=== PATIENT | male | born 1990 | race Caucasian/White ===

== ENCOUNTER 2021-07-24 20:03 | Emergency (ER) | payer OTHER ==
[2021-07-24 20:18] VITALS: TEMP 97.3; BMI 20.7
[2021-07-24] MEDS ORDERED: SODIUM CHLORIDE 1,000 ML IV STA (20:28)
[2021-07-24] MEDS ORDERED: ADENOSINE 6 MG/2 ML VIAL IVPUSH ONE ×4 (20:39→22:23)
[2021-07-24 20:44] LABS: BASO % 0.5 % (0-2.0); EOS % 1.2 % (0-4.5); HEMATOCRIT 43.1 % (35.4-49); HEMOGLOBIN 14.7 GM/dL (11.7-16.9); LYMPH % 11.4 % (8-40); MCH 31.5 pg (25.7-33.7); MCHC 34.1 g/dl (32.0-35.9); MEAN CELL VOLUME 92.3 fl (80-96); MEAN PLT VOLUME 8.3 fl (7.5-11.1); MONO % 5.1 % (3.8-10.2); NEUT % 81.8 % (42.8-82.8); PLATELET COUNT 224 10^3/uL (134-434); RBC 4.67 M/mm3 (4.00-5.60); RDW 13.9 % (11.9-15.9); WHITE BLOOD COUNT 11.1 K/mm3 (4.0-10.0)
[2021-07-24 20:51] LABS: INR 1.21 (0.83-1.09); PROTHROMBIN TIME (PATIENT) 13.6 SEC (9.7-13.0)
[2021-07-24 20:53] LABS: ACTIVATED PTT 34.4 SECONDS (25.2-36.5)
[2021-07-24 21:04] LABS: CHLORIDE 104 mmol/L (98-107); SODIUM 132 mmol/L (136-145)
[2021-07-24 21:06] LABS: CALCIUM 8.8 mg/dL (8.5-10.1)
[2021-07-24 21:07] LABS: ALBUMIN 3.9 g/dl (3.4-5.0); BLOOD UREA NITROGEN 17.3 mg/dL (7-18); CO2 28 mmol/L (21-32); GLUCOSE,RANDOM 174 mg/dL (74-106); MAGNESIUM 2.3 mg/dL (1.8-2.4)
[2021-07-24 21:10] LABS: CREATININE 1.4 mg/dL (0.55-1.3); SGOT/AST 118 U/L (15-37)
[2021-07-24 21:12] LABS: BILIRUBIN,TOTAL 0.6 mg/dL (0.2-1)
[2021-07-24 21:13] LABS: ALK PHOS 52 U/L (45-117)
[2021-07-24 22:06] LABS: ANION GAP 1 MMOL/L (8-16); SGPT/ALT 55 U/L (13-61)
[2021-07-24 22:42] VITALS: BP 130/55; PULSE 187
== END 2021-07-24 22:45 | disposition short-term general hospital (02) ==
LOC: JER 20:03
PROC: 3E033GC Introduction of Other Therapeutic Substance into Peripheral Vein, Percutaneous Approach (ICD-10-PCS; principal; 2021-07-24)
PROC: 3E033GC Introduction of Other Therapeutic Substance into Peripheral Vein, Percutaneous Approach (ICD-10-PCS; 2021-07-24)
PROC: 3E0337Z Introduction of Electrolytic and Water Balance Substance into Peripheral Vein, Percutaneous Approach (ICD-10-PCS; 2021-07-24)
DX: I47.2 Ventricular tachycardia (principal); R79.89 Other specified abnormal findings of blood chemistry; Z87.798 Personal history of other (corrected) congenital malformations
CPT/HCPCS: 36415; 71045-TC-FY; 80053; 82550; 82553; 83735; 84132; 84443; 84484; 85025; 85610; 85730; 93005; 93010; 96361; 96374; 96376; 99285-25; C9803; U0003; U0005